=== PATIENT | female | born 1945 | race Caucasian/White ===

== ENCOUNTER 2023-01-30 08:17 | Day surgery (SDC) | payer MEDICARE, BC ==
[2023-01-30] MEDS ORDERED: Sodium Chloride 0.9% 10 ML Syringe FLUSH PRN (08:30)
[2023-01-30] MEDS ORDERED: Timolol Maleate 0.5% Ophth Soln 5 ML Bottle EYERT ONE (08:30)
[2023-01-30] MEDS ORDERED: Proparacaine 0.5% Ophth Soln 15 ML Bottle EYERT ONE ×2 (08:30→09:18)
[2023-01-30] MEDS ORDERED: Tropicamide 1% Ophth Soln 15 ML Bottle EYERT ONE (08:30)
[2023-01-30] MEDS ORDERED: Cataract Ophth Solution EYERT ONE (08:30)
[2023-01-30] MEDS ORDERED: Moxifloxacin 0.5% Ophth Soln 3 ML Bottle EYERT ONE (08:30)
[2023-01-30] MEDS ORDERED: Acetaminophen/Codeine 300-30 MG Tab PO PRN (08:30)
[2023-01-30] MEDS ORDERED: Phenylephrine 10% Ophth Soln 5 ML Bot EYERT ONE (08:30)
[2023-01-30] MEDS ORDERED: Ondansetron 4 MG/2 ML SDV IVPUSH PRN (08:30)
[2023-01-30] MEDS ORDERED: Povidone-Iodine 5% Sterile Ophth Soln 30 ML Bottle EYERT ONE ×2 (08:30→09:19)
[2023-01-30] MEDS ORDERED: Acetaminophen 325 MG Tab PO PRN (08:30)
[2023-01-30] MEDS ORDERED: Lidocaine 1% 30 ML SDV ONE (09:23)
[2023-01-30] MEDS ORDERED: Balanced Salt Solution Ophth Irrig 500 ML Bottle IOCULAR ONE (09:24)
[2023-01-30] MEDS ORDERED: Chondroitin Sulfate/Hyaluronate Sodium Ophth Inj 0.75 ML Syringe EYERT ONE (09:30)
[2023-01-30] MEDS ORDERED: Vancomycin 500 MG SDV EYERT ONE (09:30)
[2023-01-30] MEDS ORDERED: Brimonidine 0.2% Ophth Soln 5 ML Bottle EYERT ONE (09:30)
[2023-01-30] MEDS ORDERED: Dexamethasone/Neomycin/Polymyxin B Ophth Oint 3.5 GM Tube EYERT ONE (09:32)
[2023-01-30] MEDS ORDERED: Diclofenac Sodium 0.1% Ophth Soln 5 ML Bottle EYERT ONE (09:32)
== END 2023-01-30 09:58 | disposition home or self-care (01) ==
LOC: DL.SDS 08:17
PROVIDERS: ATTEND Ophthalmology
DX: H25.811 Combined forms of age-related cataract, right eye (principal); I12.9 Hypertensive chronic kidney disease with stage 1 through stage 4 chronic kidney disease, or unspecified chronic kidney disease; N18.32 Chronic kidney disease, stage 3b; E11.22 Type 2 diabetes mellitus with diabetic chronic kidney disease; E03.9 Hypothyroidism, unspecified; K21.9 Gastro-esophageal reflux disease without esophagitis; D63.1 Anemia in chronic kidney disease; M81.0 Age-related osteoporosis without current pathological fracture; E66.09 Other obesity due to excess calories; M10.9 Gout, unspecified; Z79.899 Other long term (current) drug therapy; Z79.82 Long term (current) use of aspirin; Z79.890 Hormone replacement therapy; Z79.84 Long term (current) use of oral hypoglycemic drugs; Z68.37 Body mass index [BMI] 37.0-37.9, adult
CPT/HCPCS: 00142; A9270-GY; J3370; J3490; V2632

== ENCOUNTER 2023-02-13 06:35 | Day surgery (SDC) | payer MEDICARE, BC ==
[~2023-02-13 06:35] MED LIST: Sodium Chloride 0.9% 10 ML Syringe FLUSH PRN
[2023-02-13] MEDS ORDERED: Acetaminophen/Codeine 300-30 MG Tab PO PRN (07:00)
[2023-02-13] MEDS ORDERED: Acetaminophen 325 MG Tab PO PRN (07:00)
[2023-02-13] MEDS ORDERED: Ondansetron 4 MG/2 ML SDV IVPUSH PRN (07:00)
[2023-02-13] MEDS ORDERED: Proparacaine 0.5% Ophth Soln 15 ML Bottle EYELF ONE (07:00)
[2023-02-13] MEDS ORDERED: Timolol Maleate 0.5% Ophth Soln 5 ML Bottle EYELF ONE (07:00)
[2023-02-13] MEDS ORDERED: Povidone-Iodine 5% Sterile Ophth Soln 30 ML Bottle EYELF ONE ×2 (07:00→08:29)
[2023-02-13] MEDS ORDERED: Cataract Ophth Solution EYELF ONE (07:00)
[2023-02-13] MEDS ORDERED: Phenylephrine 10% Ophth Soln 5 ML Bot EYELF PRN (07:00)
[2023-02-13] MEDS ORDERED: Tropicamide 1% Ophth Soln 15 ML Bottle EYELF ONE (07:00)
[2023-02-13] MEDS ORDERED: Moxifloxacin 0.5% Ophth Soln 3 ML Bottle EYELF ONE (07:00)
[2023-02-13] MEDS ORDERED: Tetracaine HCl/PF 0.5% 4 ML Bottle EYELF ONE (08:30)
[2023-02-13] MEDS ORDERED: Brimonidine 0.2% Ophth Soln 5 ML Bottle EYELF ONE (08:30)
[2023-02-13] MEDS ORDERED: Lidocaine 1% 30 ML SDV ONE (08:30)
[2023-02-13] MEDS ORDERED: Diclofenac Sodium 0.1% Ophth Soln 5 ML Bottle EYELF ONE (08:31)
[2023-02-13] MEDS ORDERED: Acetylcholine 20 MG/2 ML Intraocular Inj Kit EYELF ONE (08:31)
[2023-02-13] MEDS ORDERED: Vancomycin 500 MG SDV EYELF ONE (08:31)
[2023-02-13] MEDS ORDERED: Tobramycin 0.3% Ophth Oint 3.5 GM Tube EYELF ONE (08:31)
[2023-02-13] MEDS ORDERED: Chondroitin Sulfate/Hyaluronate Sodium Ophth Inj 0.75 ML Syringe EYELF ONE (08:31)
[2023-02-13] MEDS ORDERED: Balanced Salt Solution Ophth Irrig 500 ML Bottle IOCULAR ONE (08:31)
== END 2023-02-13 09:10 | disposition home or self-care (01) ==
LOC: DL.SDS 06:35
PROVIDERS: ATTEND Ophthalmology
DX: H26.9 Unspecified cataract (principal)
CPT/HCPCS: 00142; A9270-GY; J3370; J3490; V2632